=== PATIENT | female | born 2005 | race Caucasian/White ===

== ENCOUNTER 2025-02-15 18:38 | Outpatient (REF) | payer BC, SELFPAY ==
[2025-02-17 11:44] LABS: Chlamydia Result Negative (Negative); GC Result Negative (Negative)
== END 2025-02-15 18:39 | disposition home or self-care (01) ==
LOC: LBN 18:38
PROVIDERS: Visit Provider Obstetrics & Gynecology
DX: Z11.3 Encounter for screening for infections with a predominantly sexual mode of transmission (principal)
CPT/HCPCS: 87491; 87591